=== PATIENT | male | born 1995 | race Caucasian/White ===

== ENCOUNTER 2020-06-19 18:45 | Emergency (ER) | payer OTHER ==
[~2020-06-19 18:45] MED LIST: CORTISPORIN OTI10 M1 EARRT; IBUPROFEN800 MG PO; LODINE CAP 300300 MG PO; TESSALON PERLE100 MG PO; VENTOLIN HFA 66.7 GM INH
[2020-06-19 20:42] LABS: HEMOGLOBIN 13.8 gm/dl (14.0-17.5); RED BLOOD COUNT 4.65 M/UL (4.20-5.50)
[2020-06-19 20:59] LABS: BUN/CREATININE RATIO 20 (0-10)
== END 2020-06-19 22:14 | disposition home or self-care (01) ==
LOC: ER1 18:45
PROVIDERS: Emergency Medicine
DX: J06.9 Acute upper respiratory infection, unspecified (principal); Z88.5 Allergy status to narcotic agent; Z20.822 Contact with and (suspected) exposure to COVID-19
CPT/HCPCS: 71045; 80053; 85025; 99283; J7030; U0002

== ENCOUNTER 2021-04-17 19:27 | Emergency (ER) | payer OTHER ==
[2021-04-17 20:27] LABS: HEMOGLOBIN 14.8 gm/dl (14.0-17.5); RED BLOOD COUNT 4.78 M/UL (4.20-5.50); WHITE BLOOD COUNT 10.5 K/UL (4.5-11.0)
[2021-04-17 20:48] LABS: BUN/CREATININE RATIO 17 (0-10)
[2021-04-17] MEDS ORDERED: PROVENTIL HFA6.7 GM INH (22:25)
[2021-04-17] MEDS ORDERED: BENZONATATE200 MG PO (22:25)
[2021-04-17] MEDS ORDERED: SUDAFED 30 MG T30 MG PO (22:25)
== END 2021-04-17 22:31 | disposition home or self-care (01) ==
LOC: ER1 19:27
PROVIDERS: Physician Assistant
DX: J40 Bronchitis, not specified as acute or chronic (principal); J00 Acute nasopharyngitis [common cold]; Z20.822 Contact with and (suspected) exposure to COVID-19
CPT/HCPCS: 71045; 80053; 85025; 87081; 87880; 99283; U0002